=== PATIENT | male | born 1950 | race Caucasian/White ===

== ENCOUNTER 2020-09-10 23:33 | Emergency (ER) | payer BC ==
[~2020-09-10] VITALS: Ht 180.3 cm; Wt 89.4 kg
[2020-09-10] MEDS ORDERED: AFRIN- Non-Preferred NS ONE (23:43)
[2020-09-11 00:01] VITALS: BP_SYST 171; BP_SYST 172; BP_SYST 175; BP_DIAS 111
[2020-09-11] MEDS ORDERED: NITROSTAT SL STA (00:03)
[2020-09-11] MEDS ORDERED: NITROSTAT SL ONE (00:10)
--- NOTE | 2020-09-11 00:10 | NUR ---
AFRIN COTTON BALLS INSERTED INTO BOTH NOSTRILS BY DR SALINAS- LARGE CLOT REMOVED FROM RT NARE- NASAL TAMPON PLACED IN RT NOSTRIL AND HAS BEEN AFFECTIVE
[2020-09-11 00:30] LABS: BASOPHIL % 0.5 % (0.0-0.2); EOSINOPHIL # 0.2 10^3/uL (0.0-0.2); EOSINOPHIL % 3.6 % (0.0-5.0); LYMPHOCYTES # 1.95 10^3/uL1 (1.0-4.8); LYMPHOCYTES % 30.3 % (24.0-44.0); MEAN CORP HGB 29.8 pg (26-34); MONOCYTES # 0.6 10^3/uL (0.3-0.8); MONOCYTES % 9.9 % (5.0-12.0); NEUTROPHIL # 3.6 10^3/uL (1.8-7.7); NEUTROPHILS % 55.4 % (41.0-85.0); PLATELET COUNT 282 10^3/uL (150-400); RED CELL DISTRIBUTION WIDTH 14.5 % (11.5-14.5)
--- NOTE | 2020-09-11 00:30 | NUR ---
NTG 0.4 SL GIVEN FOR BP
[2020-09-11 00:40] VITALS: BP 124/83
--- NOTE | 2020-09-11 00:43 | ER.PDOC ---
General Chief Complaint: Nosebleed Stated Complaint: NOSEBLEED Time seen by MD: 00:37 Source: patient Exam Limitations: no limitations History of Present Illness Initial Comments Pt had nose start to bleed about 1 hour [employer]. Takes Plavix and Aspirin. Denies pain or dyspnea. Pt here visiting from [place], feels very dry in nose and mouth here. Timing/Duration: abrupt Context: Pt unsure which nare was bleeding, or if it is both Severity: moderate Prior symptoms/Treatment: No Similar symptoms previous, No Recenly Seen, No T reated by Doctor Constitutional: no symptoms reported Eyes: no symptoms reported Ears: no symptoms reported Nose: see HPI, clots; denies congestion; epistaxis; denies pain, denies purulent discharge Mouth: no symptoms reported Throat: no symptoms reported Respiratory: no symptoms reported; denies shortness of breath Cardiovascular: no symptoms reported Musculoskeletal: no symptoms reported Neurological: no symptoms reported Immunological/Allergic: no symptoms reported All Other Systems: Reviewed and Negative Past Medical History Medical History: cardiac problems, heart attack, hypertension Surgical History: cholecystectomy, pacemaker/ICD Family History Significant Family History: no pertinent family hx Social History Alcohol Use: none Drug Use: none Physical Exam General Appearance: alert, no distress Nose: fresh clots, active bleeding (R), uncertain Head/Neck: atraumatic Eyes/Ears: PERRL Mouth: lips, gums nml, bleeding from nasopharynx NEURO/PSYCH: oriented X3 Respiratory: no resp. distress Abdomen: non-tender, no organomegaly Skin Exam: Normal Color, Warm/Dry Nasal Packing Nasal Packing : Clots Cleared From Nasal: by pt blowing Nasal Drops Instilled: Afrin (soaked gauze) External Pressure/Pinched(min): 15 Inspected With: otoscope, nasal speculum Bleeding Site/Findings: active bleeding R nare, appears anterior. L nare clear Nasal Packing Used: Anterior, Posterior; N Cauterized/Silver nitrate; Hemostatic nasal balloon Progress Quick improvement in bleeding after packing, does not feel like it's going down the back of his throat. Results/Orders Results/Orders Orders - GENET SALINAS DO Cbc With Auto Diff (09/11/20 00:03) Nitroglycerin (Nitrostat) (09/11/20 00:03) Nitroglycerin (Nitrostat) (09/11/20 00:10) Vital Signs Date Time Temp Pulse Resp B/P (MAP) Pulse Ox O2 Delivery O2 Flow Rate FiO2 09/11/20 00:40 86 20 124/83 (97) 97 Room Air 09/11/20 00:01 98.9 105 22 09/11/20 00:01 98.9 105 22 175/111 (132) Room Air 09/11/20 00:01 98.9 105 22 98 Administered Medications Medications (Trade) Dose Ordered Sig/Neelam Route PRN Reason Start Time Stop Time Status Last Admin Dose Admin Nitroglycerin (Nitrostat) 0.4 mg STAT STAT SL 09/11/20 00:03 09/11/20 00:05 DC 09/11/20 00:20 0.4 MG Laboratory Tests Test 09/11/20 00:24 White Blood Count 6.4 10^3/uL (4.5-11.0) Red Blood Count 4.53 10^6/uL (4.50-5.90) Hemoglobin 13.5 g/dL (13.9-16.3) L Hematocrit 41.0 % (37.0-53.0) Mean Corpuscular Volume 90.5 fL (78-100) Mean Corpuscular Hemoglobin 29.8 pg (26-34) Mean Corpuscular Hemoglobin Concent 32.9 g/dL (33-36.5) L Red Cell Distribution Width 14.5 % (11.5-14.5) Platelet Count 282 10^3/uL (150-400) Mean Platelet Volume 10.0 fL (7.8-11.0) Neutrophils (%) (Auto) 55.4 % (41.0-85.0) Lymphocytes (%) (Auto) 30.3 % (24.0-44.0) Monocytes (%) (Auto) 9.9 % (5.0-12.0) Neutrophils # (Auto) 3.6 10^3/uL (1.8-7.7) Lymphocytes # (Auto) 1.95 10^3/uL1 (1.0-4.8) Monocytes # (Auto) 0.6 10^3/uL (0.3-0.8) Absolute Immature Granulocyte (auto 0.02 10^3 u/L (0-2) Absolute Eosinophils (auto) 0.2 10^3/uL (0.0-0.2) Immature Granulocytes % 0.30 % (0.00-0.50) Eosinophils % 3.6 % (0.0-5.0) Basophils % 0.5 % (0.0-0.2) H Basophils # 0.0 10^3/uL (0.0-0.1) Progress Progress Pt lives in [place], is flying back home tomorrow. Told to keep packing in place until Monday. Borderline low Hgb, will need it re-checked on Monday. [id number] - Pt rechecked, minimal oozing posteriorly, can d/c home, told to return if his symptoms should worsen. ER DEPART Departure Time of Disposition: 00:53 Disposition: HOME, SELF-CARE Impression: Primary Impression: Epistaxis Condition: Stable Referrals: PCP,UNKNOWN (PCP) PRIMARY CARE PROVIDER Additional Instructions: Call your music autographer tomorrow to see about holding Plavix past tonight, Keep packing in place until Monday or Monday, preferably taken out by ENT doctor. IF you are unable to get in to see an ENT doctor, your primary doctor may be willing to remove it, or you may go to an ER for removal as well. Duration or Time Spent with Pa: 40 GENET SALINAS DO Sep 11, 2020 00:43
== END 2020-09-11 01:23 | disposition home or self-care (01) ==
LOC: ER 23:33
DX: R04.0 Epistaxis (principal); I10 Essential (primary) hypertension; I25.2 Old myocardial infarction; Z90.49 Acquired absence of other specified parts of digestive tract; Z95.0 Presence of cardiac pacemaker
CPT/HCPCS: 30901; 36415; 85025; 99283; 99284